=== PATIENT | female | born 1935 | race Two or more races ===

== ENCOUNTER 2021-11-07 19:56 | Inpatient (IN) | payer MEDICARE, OTHER ==
[~2021-11-07] VITALS: Ht 162.6 cm; Wt 74.8 kg
[2021-11-07] MEDS ORDERED: ZIPRASIDONE MESYLATE 20 MG/VIAL VIAL IM ONE ×2 (21:30→21:38)
--- NOTE | 2021-11-07 22:11 | NUR ---
UPDATED KEESHA (PARTNER) [phone]
--- NOTE | 2021-11-07 22:35 | NUR ---
COVID SWAB DONE AND SENT TO LAB
[2021-11-07 22:41] LABS: BASOPHILS # (AUTO) 0.1 K/uL (0.0-0.2); BASOPHILS % (AUTO) 0.7 % (0.0-2.0); EOSINOPHILS % (AUTO) 0.3 % (0.0-6.0); HEMATOCRIT 44 % (33-45); LYMPHOCYTES # (AUTO) 1.8 K/uL (0.8-4.8); LYMPHOCYTES % (AUTO) 21.9 % (20.0-44.0); MEAN CORPUSCULAR HGB CONC 34 g/dl (31.0-36.0); MEAN CORPUSCULAR VOLUME 95 fL (82-100); MONOCYTES # (AUTO) 0.8 K/uL (0.1-1.30); MONOCYTES % (AUTO) 9.3 % (2.0-12.0); NEUTROPHILS # (AUTO) 5.7 K/uL (1.8-8.9); NEUTROPHILS % (AUTO) 67.8 % (43.0-81.0); PLATELET COUNT (AUTO) 225 K/uL (150-450); RED BLOOD CELL COUNT(AUTO) 4.61 MIL/uL (4.0-5.2); WHITE BLOOD COUNT (AUTO) 8.4 K/uL (4.3-11.0)
--- NOTE | 2021-11-07 22:52 | NUR ---
URINE COLLECTED AND SENT TO LAB
[2021-11-07 22:53] LABS: CALCIUM, SERUM 9.3 mg/dL (8.5-10.1); CARBON DIOXIDE 27 mmol/L (21-32); CHLORIDE 109 mmol/L (98-107); CREATININE 0.8 mg/dL (0.6-1.3); GLUCOSE 128 mg/dL (74-106); POTASSIUM 3.9 mmol/L (3.5-5.1); SODIUM SERUM 144 mmol/L (136-145); UREA NITROGEN, BLOOD 16 mg/dL (7-18)
[2021-11-07 22:59] LABS: ALANINE AMINOTRANSFERASE 26 U/L (12-78); ALBUMIN 3.6 g/dL (3.4-5.0); ALCOHOL, BLOOD < 3 mg/dL (0-0); ALKALINE PHOSPHATASE 104 U/L (46-116); ASPARTATE AMINOTRANSFERASE 23 U/L (15-37); BILIRUBIN,DIRECT 0.1 mg/dL (0.0-0.2); BILIRUBIN,TOTAL 0.4 mg/dL (0.2-1.0)
[2021-11-07 23:02] LABS: ACETAMINOPHEN 0 ug/ml (10-30)
[2021-11-07 23:08] LABS: BILIRUBIN,URINE NEGATIVE (NEGATIVE); COLOR,URINE YELLOW (YELLOW); LEUKOCYTE ESTERASE ,URINE NEGATIVE (NEGATIVE); NITRITE, URINE NEGATIVE (NEGATIVE); PH,URINE 6.5 (5.0-8.0); PROTEIN,URINE NEGATIVE (NEGATIVE); UGLUCOSE NEGATIVE (NEGATIVE); UROBILINOGEN,URINE 0.2 EU/dL (0.2)
[2021-11-07] MEDS ORDERED: ESCI10TA PO (23:39)
[2021-11-07] MEDS ORDERED: METH5TAB6 PO (23:39)
[2021-11-07] MEDS ORDERED: CHOL400T11 PO (23:39)
[2021-11-07] MEDS ORDERED: ASCO500C18 PO (23:39)
[2021-11-07] MEDS ORDERED: ALIS150T PO (23:39)
--- NOTE | 2021-11-07 23:59 | NUR ---
CALLED JESSICA JACKSON FOR PSYCH EVAL
--- NOTE | 2021-11-08 01:44 | NUR ---
[facility] AT BED SIDE
--- NOTE | 2021-11-08 02:04 | NUR ---
REPROT GIVEN TO SERENITY ALEMAN
--- NOTE | 2021-11-08 02:10 | NUR ---
PATIENT BEING TRANSFERRED TO 220
[2021-11-08] MEDS ORDERED: BLOOD SUGAR DIAGNOSTIC 1 EACH STRIP IN ONE (02:30)
[2021-11-08] MEDS ORDERED: ACETAMINOPHEN 325 MG TABLET PO PRN (02:30)
[2021-11-08] MEDS ORDERED: LORAZEPAM 0.5 MG TABLET PO PRN (02:30)
[2021-11-08] MEDS ORDERED: MAGNESIUM HYDROXIDE 30 ML UDC PO PRN (02:30)
[2021-11-08] MEDS ORDERED: MAG HYDROX/AL HYDROX/SIMETH 30 ML UDC PO PRN (02:30)
[2021-11-08] MEDS ORDERED: TEMAZEPAM 7.5 MG CAPSULE PO PRN (02:30)
[2021-11-08 02:45] VITALS: BP 141/95
--- NOTE | 2021-11-08 03:30 | NUR ---
GPS PILLAR WORKER NOTES: ADMITTED 86 YRS OLD FEMALE TO GPS UNIT FROM [facility] ER, ORIGINALLY FROM [facility]. UPON FACE TO FACE EVALUATION, PATIENT WAS DISORIENTED AND AGITATED. SHE WAS UNABLE TO RESPOND TO QUESTIONS ASKED. SHE KEPT REPEATING SPECIFIC INFO AND HAVING TANGENTIAL PATTERN OF RESPONSE AND THINKING. PATIENT'S NURSE DELFINA AT [facility] REPORTS THAT PATIENT WAS STRIKING OUT AT STAFF, NOT COMPLYING WITH DIRECTIVES, ATTEMPTING TO LEAVE FACILITY AND DIFFICULT TO REDIRECT. PATIENT HAS HX OF ALZHEIMER'S AND MAJOR DEPRESSIVE DISORDER. UPON FACE TO FACE ASSESSMENT, PATIENT IS A & O X 1, CONFUSED, DISORGANIZED, DISORIENTED, HARD OF HEARING BILATERALLY, EASILY IRRITABLE/AGITATED, ANXIOUS/RESTLESS BUT REDIRECTABLE AT THIS TIME. AMBULATORY, STEADY GAIT. PATIENT NEEDS FREQUENT REDIRECTIONS DUE TO CONFUSION. PATIENT HAS NO S/S OF DISTRESS. RESPIRATION EVEN AND UNLABORED WITH EQUAL RISE AND FALL OF THE CHEST, ON ROOM AIR. PATIENT BS113 MG/DL, MRSA COLLECTED IN ER, PATIENT REFUSED TO SIGN ALL ADMISSION PAPERWORK AND REFUSED TO ANSWER QUESTIONS, PATIENT IS A POOR HISTORIAN. SKIN ASSESSMENT DONE. PATIENT BELONGINGS WERE INVENTORIED AND CONTRABAND REMOVED AND PLACED IN CONTRABAND LOCKER. PATIENT IS UNDER THE PSYCHIATRIC CARE OF DR. MONZON AND MEDICAL CARE OF DR KAPOOR. PATIENT BED IS IN LOW LOCKED POSITION, CALL CASTRO WITHIN REACH. BED ALARM IS ON. PATIENT REFUSED SNACK AT THIS TIME, ONLY WANTED TO HAVE CUP OF WATER. ALL PATIENT CARE NEEDS HAVE BEEN MET AT THIS TIME. PATIENT IS SLEEPING AT THIS TIME. WILL CONTINUE TO MONITOR Q15 MINS FOR MOOD, SAFETY AND BEHAVIOR.
--- NOTE | 2021-11-08 05:30 | NUR ---
GPS RN NOTE: PATIENT IS SLEEPING COMFORTABLY AT THIS TIME.
--- NOTE | 2021-11-08 07:07 | NUR ---
GPS RN NOTE: FAMILY NOTIFIED CALLED GISEL PARR AT [phone] AND NOTIFIED ABOUT PATIENT'S ADMISSION AT GPS UNIT. BENNETT WOULD LIKE TO DISCUSS PLAN OF CARE WITH DR. MONZON. ENDORSED TO AM RN AND LEFT A MESSAGE FOR DR. MONZON ON THE COMMUNICATION BOARD. Addendum: 11/08/21 at 0723 by ASH GATYAN RN per bennett(/partner), patient is hard of hearing bilaterally and has hearing aids but patient's hearing aids are at [facility] (per bennett).
[2021-11-08 08:00] VITALS: BP 125/53
[2021-11-08] MEDS: METHIMAZOLE (5MG) 5 MG TABLET PO SCH ×2 (09:30→10:28)
[2021-11-08] MEDS ORDERED: ALISKIREN HEMIFUMARATE 150 MG TABLET PO SCH (09:30)
[2021-11-08] MEDS: ASCORBIC ACID 500 MG TABLET PO SCH ×2 (09:30→10:28)
[2021-11-08] MEDS: CHOLECALCIFEROL (VITAMIN D 3) 400 UNIT TABLET PO SCH (09:30)
--- NOTE | 2021-11-08 10:48 | NUR ---
FLOYD FROM THE LAB INFORMED RN THAT PT REFUSED BLOOD DRAW. WILL ATTEMPT LATER.
--- NOTE | 2021-11-08 10:52 | NUR ---
LEE ANN Initial Discharge Plan: Patient currently resides at [facility] located at [address] [place] [address]; ([phone]). LEE ANN contacted Radha horn ([phone]) who stated pt is welcomed back but would want this SW to send referral to [facility] due to pt requiring a locked unit. However, she stated if [facility] unable to take pt then they will take pt. LEE ANN spoke with patient's partner Kya ([phone]) to gather collateral. LEE ANN will work with the MD and treatment team to coordinate appropriate discharge.
--- NOTE | 2021-11-08 10:52 | NUR ---
SW Admit Source: Patient was placed on a 5150 hold for danger to others and GD. [facility] located at [address] [place] [address]; ([phone]). SW contacted Radha horn ([phone]) who stated pt is welcomed back but would want this SW to send referral to [facility] due to pt requiring a locked unit. However, she stated if [facility] unable to take pt then they will take pt.
--- NOTE | 2021-11-08 10:54 | NUR ---
LEE ANN Family Contact: LEE ANN contacted patient's partner Kya ([phone]) to gather collateral. LEE ANN discussed treatment and discharge planning. She reported that she is the DPOA and will bring the documents.
--- NOTE | 2021-11-08 10:58 | NUR ---
Treatment Plan: Pt is very confused and unable to sign treatment plan.
--- NOTE | 2021-11-08 11:33 | NUR ---
SNF Contact: SW contacted Saida admin from [facility] ([phone]) and stated that [facility] Shrest[facility] wants to refer pt. They stated to send referral packet. SW will send referral packet when psychiatrist uploads documents.
--- NOTE | 2021-11-08 11:43 | NUR ---
ROCIO TODD INFORMED THAT [facility] DOES NOT CARRY TEKTURNA. ROCIO TODD STATED THAT SHE WILL REVIEW OPTIONS.
[2021-11-08 20:00] VITALS: BP 152/90
[2021-11-08] MEDS: DIVALPROEX SODIUM 250 MG TABLET.DR PO SCH (21:00)
[2021-11-08] MEDS: risperiDONE 1 MG TABLET PO SCH (21:00)
[2021-11-08] MEDS: LORAZEPAM 0.5 MG TABLET PO PRN (21:36)
--- NOTE | 2021-11-08 21:38 | NUR ---
GPS RN NOTE: ANXIETY PATIENT NOTED TO BE ANXIOUS, RESTLESS, AGITATED, PACING IN THE HALLWAY, ROOM TO ROOM, NON REDIRECTABLE AT THIS TIME. PRN ATIVAN 0.5 MG 1 TAB PO ADMINISTERED. WILL CONTINUE TO MONITOR FOR ANY CHANGE OF CONDITION.
[2021-11-08] MEDS: RIVASTIGMINE TARTRATE 1.5 MG CAPSULE PO SCH (21:50)
--- NOTE | 2021-11-08 21:55 | NUR ---
GPS RN NOTE: SEEN BY DR. MONZON PATIENT SEEN BY DR. NA PALMA WITH NEW ORDERS TO START RISPERDAL AND DEPAKOTE ORDERED. NOTIFIED DR. MONZON THAT CONSENT FORM IS NEEDED FOR THESE BOTH MEDICATIONS. PER DR. MONZON HE WILL SEND THE CONSENT FORM TO GPS UNIT. WAITING FOR CONSENT FORM AT THIS TIME.
--- NOTE | 2021-11-08 22:00 | NUR ---
GPS RN NOTE DR. MONZON SPOKE TO PATIENT'S /PARTNER KESHAV AND OBTAINED INFORMATION/HISTORY REGARDING THE PATIENT.
--- NOTE | 2021-11-09 00:55 | NUR ---
GPS RN NOTE DR. MONZON SENT CONSENT FORM FOR DEPAKOTE AND RISPERDAL, FAXED TO [facility] & MEDS WERE VERIFIED. PATIENT IS SLEEPING COMFORTABLY AT THIS TIME, REFUSED TO TAKE MEDICATION AND WANTED TO SLEEP AT THIS TIME.
[2021-11-09 08:00] VITALS: BP 144/71
[2021-11-09] MEDS: ASCORBIC ACID 500 MG TABLET PO SCH (09:00)
[2021-11-09] MEDS: risperiDONE 1 MG TABLET PO SCH ×2 (09:00→21:00)
[2021-11-09] MEDS: DIVALPROEX SODIUM 250 MG TABLET.DR PO SCH ×2 (09:00→21:00)
[2021-11-09] MEDS: RIVASTIGMINE TARTRATE 1.5 MG CAPSULE PO SCH ×2 (09:00→16:47)
[2021-11-09] MEDS: CHOLECALCIFEROL (VITAMIN D 3) 400 UNIT TABLET PO SCH (09:00)
[2021-11-09] MEDS: METHIMAZOLE (5MG) 5 MG TABLET PO SCH (09:30)
--- NOTE | 2021-11-09 09:42 | NUR ---
RN-NOTES PATIENT REFUSED ALL 0900AM MEDICATIONS DESPITE EXPLANATIONS RISK AND BENEFITS. OFFERED X3 BUT PATIENT GETS IRRITABLE AND ANGRY.STATED" WHY ,NO MEDICATIONS".
--- NOTE | 2021-11-09 11:15 | NUR ---
DPOA AND ADVANCE DIRECTIVE DOCUMENTS: Patient's partner Kya ([phone]) is the DPOA documents of finances and for Health decision. [employer] Directive given. Placed in the chart.
--- NOTE | 2021-11-09 11:30 | NUR ---
RN-NOTES PATIENT'S DPOA (SUZANNA) BROUGHT PATIENT BILATERAL HEARING AID WITH AIRPLANE ELECTRICIAN. AIRPLANE ELECTRICIAN WAS KEPT IN THE NURSE STATION AND THE HEARING AID IS WITH PATIENT. WILL ENDORSE TO THE NEXT SHIFT.
--- NOTE | 2021-11-09 11:47 | NUR ---
SNF Referral: LEE ANN sent referral to [facility] atten to Saida (F:[phone]) for placement option. SW sent H & P, progress notes, and medication list.
[2021-11-09 12:46] LABS: CHOLESTEROL 223 mg/dL (<200); HDL CHOLESTEROL 60 mg/dL (40-60); LDL 146 mg/dL (0-99); TRIGLYCERIDES 133 mg/dL (30-150)
[2021-11-09 13:54] LABS: ALBUMIN 3.3 g/dL (3.4-5.0); BILIRUBIN,TOTAL 0.8 mg/dL (0.2-1.0); CALCIUM, SERUM 9.3 mg/dL (8.5-10.1); CREATININE 0.8 mg/dL (0.6-1.3); TOTAL PROTEIN, SERUM 6.6 g/dL (6.4-8.2)
[2021-11-09 16:00] VITALS: BP 159/94
--- NOTE | 2021-11-09 18:34 | NUR ---
RN-NOTES PATIENT BILATERAL HEARING AID WITH PATIENT AT THIS TIME. WILL ENDORSE TO INCOMING NURSE FOR CONTINUITY OF CARE.
[2021-11-09 20:02] VITALS: BP 158/87
--- NOTE | 2021-11-09 22:19 | NUR ---
GPS RN NOTE: MEDICATION REFUSAL PATIENT REFUSED ALL 2100 MEDICATIONS DESPITE OF RISK AND BENEFITS EXPLANATIONS. OFFERED X 3 BUT PATIENT GETS AGITATED, ANXIOUS AND CONTINUED TO REFUSE NIGHT MEDICATION. DR MONZON WAS MADE AWARE.
[2021-11-09 22:50] VITALS: BP 142/84
--- NOTE | 2021-11-09 22:53 | NUR ---
GPS RN NOTE: PATIENT'S BOTH HEARING AIDS ARE CHARGING AT NURSES STATION IN THE ELECTRONICS HARDWARE DESIGN ENGINEER. PATIENT IS SLEEPING AT THIS TIME. WILL ENDORSE TO AM RN.
--- NOTE | 2021-11-10 07:06 | NUR ---
GPS RN NOTE: PATIENT'S BOTH HEARING AIDS ARE STILL CHARGING AT NURSES STATION IN THE HAND RIVETER. PATIENT IS SLEEPING AT THIS TIME. WILL ENDORSE TO AM RN.
--- NOTE | 2021-11-10 07:47 | NUR ---
RN-NOTES RECEIVED T.O ORDER FROM DR. MONZON TO CHANGE DEPAKOTE Dr 250MG TO DEPAKOTE SPRINKLE 250MG P.O Q12HR. NOTED AND CARRIED OUT.
[2021-11-10 08:00] VITALS: BP 156/89
[2021-11-10] MEDS: RIVASTIGMINE TARTRATE 1.5 MG CAPSULE PO SCH ×2 (08:03→16:20)
[2021-11-10] MEDS: ASCORBIC ACID 500 MG TABLET PO SCH (08:03)
[2021-11-10] MEDS: risperiDONE 1 MG TABLET PO SCH ×2 (08:03→21:00)
[2021-11-10] MEDS: DIVALPROEX SODIUM 125 MG CAP.SPRINK PO SCH ×3 (09:00→21:00)
[2021-11-10] MEDS: CHOLECALCIFEROL 1,000 UNIT TABLET (VIT D3) PO SCH ×2 (09:00→09:44)
[2021-11-10] MEDS: METHIMAZOLE (5MG) 5 MG TABLET PO SCH (09:34)
--- NOTE | 2021-11-10 10:00 | NUR ---
RN-NOTES PATIENT WAS SELECTIVE WITH MEDICATIONS,REFUSED DEPAKOTE 250MG P.O AND VIT. D3 P.O. OFFERED X3
[2021-11-10 16:00] VITALS: BP 140/57
[2021-11-10 20:02] VITALS: BP 136/82
--- NOTE | 2021-11-10 21:07 | NUR ---
GPS RN NOTE: MEDICATION REFUSAL PATIENT REFUSED ALL 2100 MEDICATIONS DESPITE OF RISK AND BENEFITS EXPLANATIONS. OFFERED X 3 BUT PATIENT GETS AGITATED, ANXIOUS AND CONTINUED TO REFUSE NIGHT MEDICATION. PT. SEEN BY DR. MONZON AND DR THAKKAR WAS MADE AWARE. OF PT. IS REFUSING MEDS.
[2021-11-11 08:00] VITALS: BP 110/63
[2021-11-11] MEDS: DIVALPROEX SODIUM 125 MG CAP.SPRINK PO SCH ×2 (08:43→21:32)
[2021-11-11] MEDS: RIVASTIGMINE TARTRATE 1.5 MG CAPSULE PO SCH ×2 (08:43→17:00)
[2021-11-11] MEDS: risperiDONE 1 MG TABLET PO SCH ×2 (08:43→21:52)
[2021-11-11] MEDS: CHOLECALCIFEROL 1,000 UNIT TABLET (VIT D3) PO SCH (08:44)
[2021-11-11] MEDS: METHIMAZOLE (5MG) 5 MG TABLET PO SCH (08:44)
[2021-11-11] MEDS: ASCORBIC ACID 500 MG TABLET PO SCH (08:44)
[2021-11-11 16:00] VITALS: BP 133/69
--- NOTE | 2021-11-11 17:55 | NUR ---
GPS/RN PT REFUSED PO MEDS TODAY OFFERED X3. DR MONZON AWARE.
[2021-11-11] MEDS: TEMAZEPAM 7.5 MG CAPSULE PO PRN (23:18)
[2021-11-12] MEDS: CHOLECALCIFEROL 1,000 UNIT TABLET (VIT D3) PO SCH (09:00)
[2021-11-12] MEDS: DIVALPROEX SODIUM 125 MG CAP.SPRINK PO SCH ×2 (09:34→21:47)
[2021-11-12] MEDS: ASCORBIC ACID 500 MG TABLET PO SCH (09:34)
[2021-11-12] MEDS: risperiDONE 1 MG TABLET PO SCH ×2 (09:35→21:48)
[2021-11-12] MEDS: RIVASTIGMINE TARTRATE 1.5 MG CAPSULE PO SCH ×2 (09:35→17:36)
--- NOTE | 2021-11-12 14:01 | NUR ---
patient complain of anxiety medicated with Ativan 1mg will continue to monitor . Addendum: 11/12/21 at 1751 by NICK DC given at 1958
[2021-11-12] MEDS: LORAZEPAM 0.5 MG TABLET PO PRN (14:20)
[2021-11-13 08:00] VITALS: BP 153/71
[2021-11-13] MEDS: CHOLECALCIFEROL 1,000 UNIT TABLET (VIT D3) PO SCH ×2 (10:32→10:45)
[2021-11-13] MEDS: DIVALPROEX SODIUM 125 MG CAP.SPRINK PO SCH ×3 (10:33→20:35)
[2021-11-13] MEDS: risperiDONE 1 MG TABLET PO SCH ×3 (10:33→20:35)
[2021-11-13] MEDS: RIVASTIGMINE TARTRATE 1.5 MG CAPSULE PO SCH ×3 (10:34→16:25)
[2021-11-13] MEDS: ASCORBIC ACID 500 MG TABLET PO SCH ×2 (10:34→10:45)
--- NOTE | 2021-11-13 10:48 | NUR ---
RNRadhaCO: PT REFUSED LAB WORK.
--- NOTE | 2021-11-13 11:10 | NUR ---
RN-CO: PT REFUSED LAB WORKS, ENCOURAGED SEVERAL TIMES BUT STILL REFUSED,
[2021-11-13 16:00] VITALS: BP 144/72
[2021-11-13 20:11] VITALS: BP 151/70
--- NOTE | 2021-11-13 20:47 | NUR ---
GPS RN NOTES: RISPERDAL 0.5MG PARTIAL DOSE WASTED. PATIENT TOOK PM MEDS WITH ICE CREAM AFTER SEVERAL ENCOURAGEMENT.
[2021-11-13 21:09] LABS: BASOPHILS % (AUTO) 0.5 % (0.0-2.0); HEMATOCRIT 42 % (33-45); LYMPHOCYTES # (AUTO) 1.8 K/uL (0.8-4.8); LYMPHOCYTES % (AUTO) 21.5 % (20.0-44.0); MEAN CORPUSCULAR HGB CONC 34 g/dl (31.0-36.0); MEAN CORPUSCULAR VOLUME 97 fL (82-100); MONOCYTES # (AUTO) 0.9 K/uL (0.1-1.30); NEUTROPHILS # (AUTO) 5.4 K/uL (1.8-8.9); PLATELET COUNT (AUTO) 226 K/uL (150-450); RED BLOOD CELL COUNT(AUTO) 4.31 MIL/uL (4.0-5.2); WHITE BLOOD COUNT (AUTO) 8.2 K/uL (4.3-11.0)
[2021-11-13 21:19] LABS: VALPROIC ACID 29 ug/mL (50-100)
[2021-11-13 21:32] LABS: ALANINE AMINOTRANSFERASE 27 U/L (12-78); ALBUMIN 3.1 g/dL (3.4-5.0); ALKALINE PHOSPHATASE 104 U/L (46-116); ASPARTATE AMINOTRANSFERASE 23 U/L (15-37); BILIRUBIN,TOTAL 0.6 mg/dL (0.2-1.0); CALCIUM, SERUM 8.7 mg/dL (8.5-10.1); CARBON DIOXIDE 31 mmol/L (21-32); CHLORIDE 106 mmol/L (98-107); CREATININE 0.8 mg/dL (0.6-1.3); GLUCOSE 114 mg/dL (74-106); MAGNESIUM 2.2 mg/dL (1.8-2.4); SODIUM SERUM 144 mmol/L (136-145); TOTAL PROTEIN, SERUM 6.7 g/dL (6.4-8.2); UREA NITROGEN, BLOOD 18 mg/dL (7-18)
[2021-11-14 08:00] VITALS: BP 114/62
[2021-11-14] MEDS: risperiDONE 1 MG TABLET PO SCH ×2 (09:00→21:28)
[2021-11-14] MEDS: RIVASTIGMINE TARTRATE 1.5 MG CAPSULE PO SCH ×2 (09:00→16:35)
[2021-11-14] MEDS: DIVALPROEX SODIUM 125 MG CAP.SPRINK PO SCH ×2 (09:00→21:28)
[2021-11-14] MEDS: CHOLECALCIFEROL 1,000 UNIT TABLET (VIT D3) PO SCH (09:00)
[2021-11-14] MEDS: ASCORBIC ACID 500 MG TABLET PO SCH (09:00)
[2021-11-14] MEDS: METHIMAZOLE (5MG) 5 MG TABLET PO SCH (09:17)
--- NOTE | 2021-11-14 11:34 | NUR ---
SNF Contact: SW contacted Saida ([phone]) from [facility] ([phone]) stated they do not have beds available at this time.
--- NOTE | 2021-11-14 11:37 | NUR ---
SNF Contact: SW contacted Radha horn ([phone]) who stated pt is welcomed back upon dc and has attempted to send packet to [facility] and they denied pt.
[2021-11-14 16:00] VITALS: BP 117/61
--- NOTE | 2021-11-14 19:50 | NUR ---
GPS RN NOTE: REFUSED VITALS PATIENT REFUSED ROUTINE VITALS AT THIS TIME, GETS RESTLESS, IRRITABLE, ANXIOUS AND AGITATED TOWARDS STAFF WHEN REDIRECTED. DESPITE OF RISKS AND BENEFITS EXPLANATIONS, PATIENT CONTINUED TO REFUSE VITALS THIS SHIFT.
[2021-11-14] MEDS: LORAZEPAM 0.5 MG TABLET PO PRN (20:00)
--- NOTE | 2021-11-14 20:03 | NUR ---
GPS RN NOTE: ANXIETY/AGITATION PATIENT IS RESTLESSNESS, ANXIOUS, PACING ROOM TO ROOM, AGITATED/AGGRESSIVE WHEN REDIRECTED. PRN ATIVAN 0.5 MG PO ADMINISTERED ORDERED. PATIENT HAD SNACK, TOLERATED WELL. WILL CONTINUE TO MONITOR FOR ANY CHANGES.
--- NOTE | 2021-11-14 22:00 | NUR ---
GPS RN NOTE PATIENT SEEN BY DR. MONZON, INFORMED DR. MONZON THAT PATIENT IS EXTREMELY CONFUSED, UNABLE TO FOLLOW DIRECTIONS, TAKES MEDS MIXED IN PUDDING ONLY OTHERWISE UNABLE TO FOLLOW DIRECTIONS DURING MEDICATIONS ADMINISTRATION. PER DR. MONZON, ENDORSE TO STAFF/AM SHIFT TO GIVE MEDICINE WITH FOOD/PUDDING TO THE PATIENT. PATIENT WAS CALM AND RELAXED AT THIS TIME, WATCHING TV IN THE DINNING ROOM. WILL ENDORSE TO AM SHIFT AND WILL CONTINUE TO MONITOR THE PATIENT FOR ANY CHANGES.
--- NOTE | 2021-11-14 22:15 | NUR ---
GPS RN NOTE PATIENT'S BOTH HEARING AIDS ARE CHARGING AT NURSES STATION IN PATIENT'S PUBLIC HEALTH STAFF NURSE. WILL ENDORSE TO AM RN.
--- NOTE | 2021-11-14 23:28 | NUR ---
GPS RN NOTE PER STOCK FITTER NADEEM, PATIENT'S LABS CBC, CMP, MG, VALPORIC ACID ORDERS ARE BEING CANCELLED AT THIS TIME. REORDERED ALL THESE LABS AND WILL ENCOURAGE PATIENT FOR BLOOD DRAW IN AM SINCE PATIENT IS UNCOOPERATIVE AND REFUSES BLOOD DRAW.
--- NOTE | 2021-11-14 23:30 | NUR ---
PATIENT IS SLEEPING COMFORTABLY AT THIS TIME.
[2021-11-15 08:00] VITALS: BP 157/77
[2021-11-15] MEDS: DIVALPROEX SODIUM 125 MG CAP.SPRINK PO SCH ×2 (09:00→21:08)
[2021-11-15] MEDS: CHOLECALCIFEROL 1,000 UNIT TABLET (VIT D3) PO SCH (09:00)
[2021-11-15] MEDS: risperiDONE 1 MG TABLET PO SCH ×2 (09:00→21:08)
[2021-11-15] MEDS: ASCORBIC ACID 500 MG TABLET PO SCH (09:00)
[2021-11-15] MEDS: RIVASTIGMINE TARTRATE 1.5 MG CAPSULE PO SCH ×2 (09:00→16:47)
[2021-11-15] MEDS: METHIMAZOLE (5MG) 5 MG TABLET PO SCH (09:07)
--- NOTE | 2021-11-15 09:07 | NUR ---
PT REFUSED AM MEDS. CHARGE NURSE AWARE.WILL INFORM LAUREANO PERTINENTLY.
--- NOTE | 2021-11-15 09:09 | NUR ---
PER TIO, PRESCHOOL DISABILITY TEACHER, PT REFUSED AM BLOOD DRAW. WILL INFORM MD. WILL CONTINUE TO MONITOR.
[2021-11-15] MEDS: LISINOPRIL (10MG) 10 MG TABLET PO SCH (12:52)
--- NOTE | 2021-11-15 13:17 | NUR ---
Court Hearing: Patient's court hearing for 5810 was today and it was upheld for GD.
--- NOTE | 2021-11-15 15:04 | NUR ---
PT REFUSED LABS FOR THE SECOND TIME. EDMETRIUS METAPHYSICS TEACHER.
[2021-11-15 16:00] VITALS: BP 128/77
--- NOTE | 2021-11-15 18:50 | NUR ---
DR MONZON AND ARTHUR AWARE OF PT'S REFUSAL OF MEDICATIONS. DR MONZON CHANGE PSYCH MED SCHEDULE.
--- NOTE | 2021-11-15 20:00 | NUR ---
RN NOTES: REFUSED SKIN ASSESSMENT PT. REFUSED SKIN ASSESSMENT AND PICTURES TAKEN AND PT. VISUALLY NOTED SELF INFLICTED MULTIPLE SKIN DISCOLORATIONS.WILL CONTINUE WITH CARE .
[2021-11-15 21:07] LABS: BASOPHILS % (AUTO) 0.4 % (0.0-2.0); EOSINOPHILS % (AUTO) 1.2 % (0.0-6.0); HEMATOCRIT 43 % (33-45); HEMOGLOBIN 14.9 g/dL (11.5-14.8); LYMPHOCYTES # (AUTO) 1.3 K/uL (0.8-4.8); LYMPHOCYTES % (AUTO) 17.8 % (20.0-44.0); MEAN CORPUSCULAR HGB CONC 34 g/dl (31.0-36.0); MEAN CORPUSCULAR VOLUME 95 fL (82-100); MONOCYTES # (AUTO) 0.8 K/uL (0.1-1.30); MONOCYTES % (AUTO) 11.1 % (2.0-12.0); NEUTROPHILS % (AUTO) 69.5 % (43.0-81.0); PLATELET COUNT (AUTO) 215 K/uL (150-450); RED BLOOD CELL COUNT(AUTO) 4.57 MIL/uL (4.0-5.2); WHITE BLOOD COUNT (AUTO) 7.2 K/uL (4.3-11.0)
[2021-11-15 21:20] LABS: ALBUMIN 3.3 g/dL (3.4-5.0); BILIRUBIN,TOTAL 0.5 mg/dL (0.2-1.0); CALCIUM, SERUM 8.7 mg/dL (8.5-10.1); MAGNESIUM 2.2 mg/dL (1.8-2.4); POTASSIUM 4.1 mmol/L (3.5-5.1)
[2021-11-15 22:00] VITALS: BP 132/78
[2021-11-16 08:00] VITALS: BP 143/72
[2021-11-16] MEDS: CHOLECALCIFEROL 1,000 UNIT TABLET (VIT D3) PO SCH (09:23)
[2021-11-16] MEDS: LISINOPRIL (10MG) 10 MG TABLET PO SCH (09:24)
[2021-11-16] MEDS: ASCORBIC ACID 500 MG TABLET PO SCH (09:24)
[2021-11-16] MEDS: METHIMAZOLE (5MG) 5 MG TABLET PO SCH (10:27)
[2021-11-16] MEDS: risperiDONE 1 MG TABLET PO SCH ×2 (13:48→21:06)
[2021-11-16] MEDS: RIVASTIGMINE TARTRATE 1.5 MG CAPSULE PO SCH ×2 (13:49→21:05)
[2021-11-16] MEDS: DIVALPROEX SODIUM 125 MG CAP.SPRINK PO SCH ×2 (13:49→21:05)
[2021-11-16 16:00] VITALS: BP 132/69
[2021-11-16] MEDS: LORAZEPAM 0.5 MG TABLET PO PRN (19:52)
--- NOTE | 2021-11-16 19:55 | NUR ---
RN NOTES: ANXIETY PATIENT C/O RESTLESSNESS AND ANXIETY,PARANOID.PACING IN HALLWAY ,WANDERS AROUND THE UNIT , PRN ATIVAN 0.5 MG PO ADMINISTERED . WILL CONTINUE TO MONITOR .
[2021-11-16 20:00] VITALS: BP 132/83
--- NOTE | 2021-11-17 05:40 | NUR ---
RN NOTES: REFUSED SKIN ASSESSMENT PT. REFUSED SKIN ASSESSMENT AND PICTURES TAKEN AND PT.BEHAVIOR UNCOOPERTIVE ,PARANOID.WILL CONTINUE WITH CARE .
[2021-11-17 08:00] VITALS: BP 125/76
[2021-11-17] MEDS: CHOLECALCIFEROL 1,000 UNIT TABLET (VIT D3) PO SCH (09:19)
[2021-11-17] MEDS: ASCORBIC ACID 500 MG TABLET PO SCH (09:19)
[2021-11-17] MEDS: METHIMAZOLE (5MG) 5 MG TABLET PO SCH (09:19)
[2021-11-17] MEDS: LISINOPRIL (10MG) 10 MG TABLET PO SCH (09:19)
[2021-11-17] MEDS: DIVALPROEX SODIUM 125 MG CAP.SPRINK PO SCH ×2 (13:24→21:09)
[2021-11-17] MEDS: RIVASTIGMINE TARTRATE 1.5 MG CAPSULE PO SCH ×2 (13:24→21:09)
[2021-11-17] MEDS: risperiDONE 1 MG TABLET PO SCH ×2 (13:24→21:09)
[2021-11-17 16:00] VITALS: BP 129/61
[2021-11-17 20:00] VITALS: BP 136/81
[2021-11-17] MEDS: TEMAZEPAM 7.5 MG CAPSULE PO PRN (21:47)
--- NOTE | 2021-11-17 21:47 | NUR ---
GPS RN NOTES: INSOMNIA PATIENT IS UNABLE TO SLEEP. ADMINISTERED RESTORIL 7.5MG PO. WILL CONTINUE TO MONITOR.
[2021-11-18] MEDS: LORAZEPAM 0.5 MG TABLET PO PRN ×2 (00:31→19:58)
--- NOTE | 2021-11-18 00:31 | NUR ---
GPS RN NOTES PATIENT IS ANXIOUS AND RESTLESS. ADMINISTERED ATIVAN 05.MG 1 TAB PO. WILL CONTINUE TO MONITOR FOR PATIENT'S SAFETY.
[2021-11-18 08:00] VITALS: BP 132/78
[2021-11-18] MEDS: METHIMAZOLE (5MG) 5 MG TABLET PO SCH (09:40)
[2021-11-18] MEDS: ASCORBIC ACID 500 MG TABLET PO SCH (09:40)
[2021-11-18] MEDS: CHOLECALCIFEROL 1,000 UNIT TABLET (VIT D3) PO SCH (09:40)
[2021-11-18] MEDS: LISINOPRIL (10MG) 10 MG TABLET PO SCH (09:40)
[2021-11-18] MEDS: RIVASTIGMINE TARTRATE 1.5 MG CAPSULE PO SCH ×2 (12:32→21:15)
[2021-11-18] MEDS: risperiDONE 1 MG TABLET PO SCH ×2 (12:33→21:15)
[2021-11-18] MEDS: DIVALPROEX SODIUM 125 MG CAP.SPRINK PO SCH ×2 (12:33→22:11)
--- NOTE | 2021-11-18 13:45 | NUR ---
RN-NOTES BILLET GRINDER HELPING THE PATIENT WITH HER LUNCH TRAY IN THE ROOM BUT PATIENT THROW HER TRAY AND STATED" DON'T GIVE ME ANYTHING,YOU SEE WHAT YOU DID". PATIENT IS CONFUSED, REDIRECTED AND REORIENTED PATIENT. BILLET GRINDER DID ORDERED ANOTHER LUNCH TRAY AND PATIENT DID ATE.
[2021-11-18] MEDS ORDERED: DIVALPROEX SODIUM 125 MG CAP.SPRINK PO SCH ×3 (15:00→21:00)
[2021-11-18 16:00] VITALS: BP 119/69
[2021-11-18] MEDS ORDERED: risperiDONE 1 MG TABLET PO SCH ×2 (17:00)
[2021-11-18 19:42] VITALS: BP 134/67
[2021-11-18 19:55] VITALS: BP 134/67
--- NOTE | 2021-11-18 19:59 | NUR ---
GPS RN NOTE: ANXIETY PATIENT IS RESTLESS, ANXIOUS, AGITATED/AGGRESSIVE WHEN REDIRECTED. PRN ATIVAN 0.5 MG PO ADMINISTERED ORDERED. PATIENT HAD SNACK, TOLERATED WELL. WILL CONTINUE TO MONITOR FOR ANY CHANGES.
--- NOTE | 2021-11-18 23:00 | NUR ---
GPS RN NOTE PATIENT TOOK ALL HER SCHEDULED MEDICATIONS WITH VANILLA PUDDING, USED THE RESTROOM AND SLEEPING AT THIS TIME.
[2021-11-19 08:00] VITALS: BP 131/76
[2021-11-19] MEDS: LISINOPRIL (10MG) 10 MG TABLET PO SCH (10:03)
[2021-11-19] MEDS: CHOLECALCIFEROL 1,000 UNIT TABLET (VIT D3) PO SCH (10:04)
[2021-11-19] MEDS: ASCORBIC ACID 500 MG TABLET PO SCH (10:04)
[2021-11-19] MEDS: DIVALPROEX SODIUM 125 MG CAP.SPRINK PO SCH ×2 (12:54→21:46)
[2021-11-19] MEDS: RIVASTIGMINE TARTRATE 1.5 MG CAPSULE PO SCH ×2 (12:54→21:21)
[2021-11-19] MEDS: risperiDONE 1 MG TABLET PO SCH ×2 (12:54→21:21)
[2021-11-19 16:00] VITALS: BP 107/50
[2021-11-19 19:55] VITALS: BP 113/56
[2021-11-19] MEDS: LORAZEPAM 0.5 MG TABLET PO PRN (23:06)
[2021-11-20 08:00] VITALS: BP 110/69
[2021-11-20] MEDS: ASCORBIC ACID 500 MG TABLET PO SCH (09:00)
[2021-11-20] MEDS: CHOLECALCIFEROL 1,000 UNIT TABLET (VIT D3) PO SCH (09:00)
[2021-11-20] MEDS: LISINOPRIL (10MG) 10 MG TABLET PO SCH (09:00)
[2021-11-20] MEDS: risperiDONE 1 MG TABLET PO SCH ×2 (13:27→21:34)
[2021-11-20] MEDS: RIVASTIGMINE TARTRATE 1.5 MG CAPSULE PO SCH ×2 (13:27→21:33)
[2021-11-20] MEDS: DIVALPROEX SODIUM 125 MG CAP.SPRINK PO SCH ×2 (13:28→21:44)
[2021-11-20 16:00] VITALS: BP 143/85
[2021-11-20 20:02] VITALS: BP 126/75
[2021-11-20] MEDS: TEMAZEPAM 7.5 MG CAPSULE PO PRN (21:45)
--- NOTE | 2021-11-20 21:47 | NUR ---
Pt unable to sleep. Agitated and roaming around. Restoril 7.5 mg po prn given as ordered. Will continue to monitor.
--- NOTE | 2021-11-20 23:13 | NUR ---
Post 1 hr Restoril effective. Pt asleep. Will continue to monitor. Frequent visual check done for safety.
[2021-11-21 08:00] VITALS: BP 118/51
[2021-11-21] MEDS: ASCORBIC ACID 500 MG TABLET PO SCH (08:57)
[2021-11-21] MEDS: METHIMAZOLE (5MG) 5 MG TABLET PO SCH (08:57)
[2021-11-21] MEDS: CHOLECALCIFEROL 1,000 UNIT TABLET (VIT D3) PO SCH (08:57)
[2021-11-21] MEDS: LISINOPRIL (10MG) 10 MG TABLET PO SCH (08:57)
--- NOTE | 2021-11-21 09:34 | NUR ---
SW Family Contact: SW contacted patient's partner Kya ([phone]) and stated that pt will be discharged back to [facility] 11/22 at 4pm. She was agreeable with this.
[2021-11-21] MEDS: DIVALPROEX SODIUM 125 MG CAP.SPRINK PO SCH ×2 (12:20→21:06)
[2021-11-21] MEDS: RIVASTIGMINE TARTRATE 1.5 MG CAPSULE PO SCH ×2 (12:20→21:05)
[2021-11-21] MEDS: risperiDONE 1 MG TABLET PO SCH ×2 (12:20→21:05)
[2021-11-21 19:52] VITALS: BP 148/71
[2021-11-22 08:00] VITALS: BP 145/74
--- NOTE | 2021-11-22 08:07 | NUR ---
SW Discharge Note: Pt will be discharged to [facility] (SNF) located at [address] [place] [id number]; ([phone]). Pt will be transported via the facility pickup around 4PM. Pts partner Kya ([phone]), has been informed. Upon discharge, the pt appears to be in a euthymic mood and presents with a calm affect. Pt appears to be alert and oriented x2 (self,place). Pt denies both suicidal and homicidal ideation as well as auditory and visual hallucinations. Pt appears to be ungroomed and appears to be ambulatory with a steady gait. Pt will be under the care of his psychiatrist, Dr. Thompson, located at [address] [place] [address]; and team leader/research psychologist, Dr. Cohen, located at [address] [place] [address] [address], [place] [address]; . Pt signed the Choice of Vendor and the multidisciplinary exit care form was signed, completed, and a copy was given to the pt.
[2021-11-22] MEDS: ASCORBIC ACID 500 MG TABLET PO SCH (08:35)
[2021-11-22] MEDS: LISINOPRIL (10MG) 10 MG TABLET PO SCH (08:35)
[2021-11-22] MEDS: CHOLECALCIFEROL 1,000 UNIT TABLET (VIT D3) PO SCH (08:35)
[2021-11-22] MEDS: METHIMAZOLE (5MG) 5 MG TABLET PO SCH (08:36)
[2021-11-22] MEDS: RIVASTIGMINE TARTRATE 1.5 MG CAPSULE PO SCH (12:28)
[2021-11-22] MEDS: DIVALPROEX SODIUM 125 MG CAP.SPRINK PO SCH (12:28)
[2021-11-22] MEDS: risperiDONE 1 MG TABLET PO SCH (12:28)
[2021-11-22 16:10] VITALS: BP 149/81
--- NOTE | 2021-11-22 16:45 | NUR ---
Pt has been discharged to [facility] (SNF) located at [address] [facility], [place] [address]; ([phone]). Pt left unit @ 1645 escorted by [facility] GPS staff via w/c. Pt transported via the facility pickup. Pts partner Kya ([phone]), has been informed. Upon discharge, Pt appears to be alert and oriented x2 (self,place). Pt denies both suicidal and homicidal ideation as well as auditory and visual hallucinations. Pt appears to be groomed and appears to be ambulatory with a steady gait. Pt will be under the care of his psychiatrist, Dr. Thompson, located at [address] [place] [address]; and ammonium nitrate crystallizer, Dr. Cohen, located at [address], [place] [address]; . Pt signed the Choice of Vendor and the multidisciplinary exit care form was signed, completed, and a copy was given to the pt. Exit care and after care instructions, education and documents signed and placed in discharge packet. Pt refused skin pictures. All belongings and valuables signed and returned. Medication reconciliation list for medical and psychiatric meds in discharge packet. Report called to [facility]. Report given to Janet BENTON.
== END 2021-11-22 19:11 | DRG 885 ==
LOC: ER 19:59 → EDBD 19:59 → GPS 11-08 02:01
PROVIDERS: ADMIT Psychiatry & Neurology Psychiatry; ATTEND Internal Medicine
DX: F39 Unspecified mood [affective] disorder (principal); E44.1 Mild protein-calorie malnutrition; F29 Unspecified psychosis not due to a substance or known physiological condition; E03.9 Hypothyroidism, unspecified; G30.9 Alzheimer's disease, unspecified; F02.80 Dementia in other diseases classified elsewhere, unspecified severity, without behavioral disturbance, psychotic disturbance, mood disturbance, and anxiety; Z20.822 Contact with and (suspected) exposure to COVID-19; E78.5 Hyperlipidemia, unspecified; K21.9 Gastro-esophageal reflux disease without esophagitis; K58.9 Irritable bowel syndrome, unspecified; F32.9 Major depressive disorder, single episode, unspecified; E04.9 Nontoxic goiter, unspecified; Z88.1 Allergy status to other antibiotic agents; Z88.5 Allergy status to narcotic agent; Z91.09 Other allergy status, other than to drugs and biological substances; I10 Essential (primary) hypertension; E88.09 Other disorders of plasma-protein metabolism, not elsewhere classified; Z73.6 Limitation of activities due to disability
CPT/HCPCS: 36415; 70450-TC; 80048-TC; 80053-TC; 80061-TC; 80076-TC; 80164-TC; 82962-TC; 83735-TC; 84443-TC; 85025-TC; 87081-TC; C9803; G0480; J3486

== ENCOUNTER 2022-06-30 10:57 | Inpatient (IN) | payer MEDICARE, OTHER ==
[~2022-06-30] VITALS: Ht 157.5 cm; Wt 65.8 kg
[~2022-06-30 10:57] MED LIST: ALIS150T PO; ASCO500C18 PO; CHOL400T11 PO; METH5TAB6 PO
--- NOTE | 2022-06-30 11:16 | NUR ---
YOKO WASSERMAN FROM [facility] FOR L HIP FRACTURE S/P FALLING OFF OF HER WHEELCHAIR LAST NIGHT, XRAY DONE THIS MORNING CONFIRIMING L FEMORAL NECK FRACTURE. TO ER BED 4, HOOKED TO MONITOR, CHANGED TO HOSP GOWN, WARM BLANKLET PROVIDED. PATIENT AAOx1. BREATHING EVEN AND UNLABORED. AWAITING MD COREA
--- NOTE | 2022-06-30 11:17 | NUR ---
DR WALSH AT BEDSIDE
--- NOTE | 2022-06-30 11:29 | NUR ---
MOVE SHEET SUBMITTED.
[2022-06-30 11:47] LABS: BASOPHILS % (AUTO) 0.2 % (0.0-2.0); EOSINOPHILS % (AUTO) 0.3 % (0.0-6.0); HEMATOCRIT 45 % (33-45); HEMOGLOBIN 15.1 g/dL (11.5-14.8); LYMPHOCYTES # (AUTO) 1.2 K/uL (0.8-4.8); LYMPHOCYTES % (AUTO) 10.2 % (20.0-44.0); MEAN CORPUSCULAR HGB CONC 33 g/dl (31.0-36.0); MEAN CORPUSCULAR VOLUME 88 fL (82-100); MONOCYTES % (AUTO) 8.5 % (2.0-12.0); NEUTROPHILS # (AUTO) 9.2 K/uL (1.8-8.9); NEUTROPHILS % (AUTO) 80.8 % (43.0-81.0); PLATELET COUNT (AUTO) 309 K/uL (150-450); RED BLOOD CELL COUNT(AUTO) 5.14 MIL/uL (4.0-5.2); WHITE BLOOD COUNT (AUTO) 11.4 K/uL (4.3-11.0)
[2022-06-30 11:57] LABS: CALCIUM, SERUM 9.1 mg/dL (8.5-10.1); CREATININE 0.8 mg/dL (0.6-1.3); POTASSIUM 3.5 mmol/L (3.5-5.1)
[2022-06-30 12:04] LABS: ALBUMIN 3.4 g/dL (3.4-5.0); BILIRUBIN,DIRECT 0.2 mg/dL (0.0-0.2); BILIRUBIN,TOTAL 0.6 mg/dL (0.2-1.0); TOTAL PROTEIN, SERUM 7.8 g/dL (6.4-8.2)
--- NOTE | 2022-06-30 12:17 | NUR ---
COVID SWAB DONE AND SENT TO LAB
--- NOTE | 2022-06-30 12:20 | NUR ---
resting and asleepy no sob
[2022-06-30] MEDS ORDERED: ZINC220T4 PO (12:27)
[2022-06-30] MEDS ORDERED: TRAZ-182 PO (12:27)
[2022-06-30] MEDS ORDERED: MULT-439 PO (12:27)
[2022-06-30] MEDS ORDERED: LISI-768 PO (12:27)
[2022-06-30] MEDS ORDERED: BISA10SU11 RC (12:27)
[2022-06-30] MEDS ORDERED: ACET325T53 PO (12:27)
[2022-06-30] MEDS ORDERED: AMIN887L PO (12:27)
[2022-06-30] MEDS ORDERED: MELA3TAB41 PO (12:27)
[2022-06-30] MEDS ORDERED: FERR325T23 PO (12:27)
[2022-06-30] MEDS ORDERED: RISP0.5T5 PO (12:27)
--- NOTE | 2022-06-30 12:36 | NUR ---
CONTACTED ORTHO DR. KING SPEAKING WITH ER
[2022-06-30] MEDS ORDERED: MAG HYDROX/AL HYDROX/SIMETH 30 ML UDC PO PRN (13:00)
[2022-06-30] MEDS ORDERED: BISACODYL SUPP (10 MG) 10 MG/SUPP.RECT SUPP.RECT RC PRN (13:00)
[2022-06-30] MEDS ORDERED: Z GUARD REMEDY 4 OZ OINT TP PRN (13:00)
[2022-06-30] MEDS ORDERED: ONDANSETRON HCL/PF 4 MG/2 ML VIAL IVP PRN (13:00)
[2022-06-30] MEDS ORDERED: ACETAMINOPHEN 325 MG TABLET PO PRN (13:00)
--- NOTE | 2022-06-30 13:30 | NUR ---
TO CT SCAN
--- NOTE | 2022-06-30 13:43 | NUR ---
GOT BED 310-1
[2022-06-30] MEDS ORDERED: DEXTROSE 50%-WATER 50 ML DISP.SYRIN IV PRN (14:00)
--- NOTE | 2022-06-30 14:08 | NUR ---
HAND OFF YARI BENTON TO OOM 310-1 VIA TERRI
--- NOTE | 2022-06-30 15:30 | NUR ---
PUPIL PERSONNEL SERVICES DIRECTOR NOTE ADMITTED THIS 87 Y/O FEMALE PATIENT FROM [facility]. CAME TO THE UNIT @1350, TRANSPORTED VIA GURNEY. ACCOMPANIED BY COMPUTER SCIENCES PROFESSOR. WITH ADMITTING DIAGNOSIS OF LEFT HIP FRACTURE. PATIENT IS AWAKE, A/O X1-2, VERBALLY RESPONSIVE. NO SIGNS OF ACUTE RESPIRATORY DISTRESS NOTED. STABLE ON ROOM AIR, NO SOB NOTED, BREATHING EVEN AND UNLABORED. NOTED WITH IV ACCESS ON RIGHT ANTECUBITAL AREA #20G, INTACT AND PATENT. PATIENT DOESN'T HAVE BELONGINGS ON ADMISSION. BODY ASSESSMENT DONE. NOTED WITH SACRAL WOUND, PERINEAL AREA EXCORIATION, LEFT FORE ARM SCAB, LEFT HEEL SCAB. ALSO NOTED WITH LEFT BREAST MASTECTOMY. ROUTINE ADMISSION CARE RENDERED. SAFETY MEASURE IN PLACE. BED IN LOWEST AND LOCKED POSITION, SIDE RAILS UP X3, CALL LIGHT PLACED WITHIN EASY REACH. WILL CONTINUE TO MONITOR PATIENT.
[2022-06-30 16:00] VITALS: BP 132/76
[2022-06-30] MEDS: BLOOD SUGAR DIAGNOSTIC 1 EACH STRIP IN SCH ×2 (17:20→21:56)
[2022-06-30] MEDS: METHIMAZOLE (5MG) 5 MG TABLET PO SCH (17:20)
[2022-06-30] MEDS: INSULIN REGULAR, HUMAN 100 UNIT/ML 3 ML VIAL SQ PRN ×2 (17:20→21:57)
[2022-06-30] MEDS: PROSOURCE / PROSTAT (PYXIS) 30 ML UDC PO SCH (17:21)
[2022-06-30] MEDS: IV NS 0.9% 1,000 ML IV PRN (17:51)
[2022-06-30] MEDS: MORPHINE SULFATE INJ 2 MG/ML DISP.SYRIN IV PRN (18:38)
--- NOTE | 2022-06-30 18:49 | NUR ---
RN CLOSING NOTES PATIENT IN BED AWAKE, A/O X1-2, VERBALLY RESPONSIVE. READING A BOOK. NO SIGNS OF ACUTE DISTRESS NOTED. STABLE ON ROOM AIR. IV ACCESS ON RIGHT AC #20G, INTACT AND PATENT WITH NS @ 100ML/HR RUNNING. MORPHINE GIVEN FOR PAIN. REPOSITIONED FOR COMFORT. ALL NEEDS ANTICIPATED AND ATTENDED. CALL LIGHT PLACED WITHIN EASY REACH WILL CONTINUE TO MONITOR PATIENT.
--- NOTE | 2022-06-30 19:30 | NUR ---
RN OPENING NOTE PATIENT IN BED, AWAKE. PATIENT IS A/O X 1, CONFUSED. PATIENT IS ON RA, TOLERATING WELL. PATIENT HAS A IBARRA CATH ON, NO OUTPUT AT THIS TIME, WILL CHECK. RAC 20 G PATNET AND INTACT WITH NS AT 100 ML/HR ONGOING. PATIENT DOES NOT SEEM TO BE IN PAIN AT THIS TIME VIA FLACC. SAFETY MEASURES IN PLACE: BED LOCKED AND IN LOWEST POSITION, CALL LIGHT WITHIN REACH, SIDE RAILS UP. WILL MONITOR PATIENT CLOSELY.
[2022-06-30 20:00] VITALS: BP 134/71
--- NOTE | 2022-06-30 20:40 | NUR ---
RN NOTE IBARRA CATHETER RE-INSERTED, 16 F WITH YELLOW URINE DRAINING. PREVIOUS IBARRA CATH NO OUTPUT, NOT IN THE RIGHT PLACE. URINE SPECIMEN COLLECTED AND PLACED IN SPECIMEN FRIDGE.
[2022-06-30] MEDS: risperiDONE 1 MG TABLET PO SCH (21:49)
[2022-06-30] MEDS: TRAZODONE 50 MG TABLET PO SCH (21:49)
--- NOTE | 2022-06-30 21:57 | NUR ---
RN NOTE BS 109 MG/DL, NO COVERAGE GIVEN. FED PATIENT APPLE SAUCE. WILL MONITOR FOR HYPO/HYPERGLYCEMIA.
[2022-06-30] MEDS ORDERED: MAGNESIUM HYDROXIDE 30 ML UDC PO PRN (22:00)
[2022-06-30] MEDS ORDERED: Medication Not On Formulary EA (Melatonin 3 MG) PO SCH (22:00)
[2022-06-30] MEDS ORDERED: ZOLPIDEM TARTRATE 5 MG TABLET PO PRN (22:00)
--- NOTE | 2022-07-01 03:43 | NUR ---
RN ROXI NOTE TRANSFERRED PATIENT CARE TO JAYDEN RN, PATIENT WAS SEEN WITH EYES CLOSED. NOT IN ANY APPARENT DISTRESS.
--- NOTE | 2022-07-01 04:00 | NUR ---
MS RN NOTES RECEIVED REPORT FROM SERENITY LAMB,PATIENT ON BED,CALM AND QUIET,NO PAIN AT THE MOMENT,CALL LIGHT IN REACH,NEEDS ANTICIPATED.
--- NOTE | 2022-07-01 05:33 | NUR ---
MS RN NOTES ACCU-CHECK BLOOD SUGAR CHECK 124MG/DL,NO INSULIN COVERAGE
--- NOTE | 2022-07-01 06:21 | NUR ---
MS RN NOTES FAIRLY TESTED AT NIGHT,PAIN TOLERABLE AT THE MOMENT,IVF INFUSING WELL ON RIGHT AC SALINE LOCK.NPO POST MIDNIGHT TONIGHT FOR SURGERY TOMORROW,SURGICAL CHECKLIST ON CHART.BLOOD SUGAR WNL,FALL RISK,BED ON LOWEST POSITION AND LOCKED,IBARRA CATH IN PLACE,CALL LIGHT IN REACH,NEEDS ATTENDED.
[2022-07-01 06:41] LABS: BASOPHILS % (AUTO) 0.2 % (0.0-2.0); EOSINOPHILS % (AUTO) 0.3 % (0.0-6.0); HEMATOCRIT 42 % (33-45); HEMOGLOBIN 13.7 g/dL (11.5-14.8); LYMPHOCYTES # (AUTO) 1.6 K/uL (0.8-4.8); LYMPHOCYTES % (AUTO) 13.9 % (20.0-44.0); MEAN CORPUSCULAR HGB CONC 33 g/dl (31.0-36.0); MEAN CORPUSCULAR VOLUME 90 fL (82-100); MONOCYTES % (AUTO) 8.7 % (2.0-12.0); NEUTROPHILS # (AUTO) 8.6 K/uL (1.8-8.9); NEUTROPHILS % (AUTO) 76.9 % (43.0-81.0); PLATELET COUNT (AUTO) 256 K/uL (150-450); RED BLOOD CELL COUNT(AUTO) 4.66 MIL/uL (4.0-5.2); WHITE BLOOD COUNT (AUTO) 11.1 K/uL (4.3-11.0)
[2022-07-01 07:23] LABS: CALCIUM, SERUM 8.6 mg/dL (8.5-10.1); CREATININE 0.8 mg/dL (0.6-1.3); MAGNESIUM 1.8 mg/dL (1.8-2.4); PHOSPHORUS 2.9 mg/dL (2.5-4.9); POTASSIUM 3.9 mmol/L (3.5-5.1)
[2022-07-01 07:56] LABS: BILIRUBIN,URINE NEGATIVE (NEGATIVE); COLOR,URINE YELLOW (YELLOW); LEUKOCYTE ESTERASE ,URINE NEGATIVE (NEGATIVE); NITRITE, URINE NEGATIVE (NEGATIVE); PH,URINE 5.5 (5.0-8.0); PROTEIN,URINE NEGATIVE (NEGATIVE); UGLUCOSE NEGATIVE (NEGATIVE); UROBILINOGEN,URINE 0.2 EU/dL (0.2)
[2022-07-01] MEDS: BLOOD SUGAR DIAGNOSTIC 1 EACH STRIP IN SCH ×4 (07:57→22:13)
[2022-07-01 08:00] VITALS: BP 154/60
[2022-07-01 08:30] LABS: BACTERIA,URINE Few /HPF (None Seen); RBC,URINE 0-2 /HPF (0-2)
[2022-07-01] MEDS: CHOLECALCIFEROL 1,000 UNIT TABLET (VIT D3) PO SCH (09:21)
[2022-07-01] MEDS: MULTIVIT W/MINERALS 1 TAB TABLET PO SCH (09:22)
[2022-07-01] MEDS: risperiDONE 1 MG TABLET PO SCH ×2 (09:22→21:06)
[2022-07-01] MEDS: FERROUS SULFATE (325 MG) 325 MG/TAB TABLET PO SCH (09:22)
[2022-07-01] MEDS: ZINC SULFATE 220 MG CAPSULE PO SCH (09:22)
[2022-07-01] MEDS: ASCORBIC ACID 500 MG TABLET PO SCH (09:22)
[2022-07-01] MEDS: LISINOPRIL (5MG) 5 MG TABLET PO SCH (09:23)
[2022-07-01] MEDS: PROSOURCE / PROSTAT (PYXIS) 30 ML UDC PO SCH (09:24)
[2022-07-01 16:00] VITALS: BP 161/69
[2022-07-01] MEDS: PROSOURCE / PROSTAT (PYXIS) 30 ML UDC GT SCH (16:07)
[2022-07-01] MEDS: MORPHINE SULFATE INJ 2 MG/ML DISP.SYRIN IV PRN (16:08)
--- NOTE | 2022-07-01 18:17 | NUR ---
RN Closing Note PT AOx2, pt is not able to express her own concerns or needs. Patient complains and cries when repositioned asking not to be moved. Provided care as needed, pt had 1 bowel movement throughout shift. Pt remained safe throughout shift, call light and table within reach, bed at lowest position. IV with no signs of infiltration. Tai cath patent. Pt remained safe throughout shift.
[2022-07-01] MEDS: INSULIN REGULAR, HUMAN 100 UNIT/ML 3 ML VIAL SQ PRN ×2 (19:12→22:33)
[2022-07-01 20:00] VITALS: BP 137/68
[2022-07-01] MEDS: ACETAMINOPHEN 325 MG TABLET PO PRN (20:07)
--- NOTE | 2022-07-01 20:21 | NUR ---
MS RN OPENING NOTE PATIENT AWAKE IN BED, ALERT/ORIENTED X 1, PT CONFUSED. PATIENT STABLE ON RA, NO S/S OF DISTRESS OR SOB NOTED, BREATHING EVEN AND UNLABORED. IV ACCESS ON RIGHT AC #20G INTACT AND INFUSING NS @ 100 ML/HR. IBARRA CATHETER IN PLACE AND DRAINING YELLOW URINE. PATIENT TO BE NPO AT MIDNIGHT FOR SURGERY IN AM. PATIENT NOTED WITH FEVER, 100.4, TYLENOL 650 MG IVEN ORDERED. SAFETY MEASURES IN PLACE: CALL LIGHT WITHIN REACH, SIDE RAILS UP X 3, BED LOCKED IN LOWEST POSITION, BED ALARM ON. WILL CONTINUE TO MONITOR PATIENT
[2022-07-01] MEDS: TRAZODONE 50 MG TABLET PO SCH (22:13)
--- NOTE | 2022-07-01 22:29 | NUR ---
MS RN NOTE REASSESSED PATIENT'S TEMP NOW 98.7. CHECKED PATIENT'S BLOOD SUGAR AND WAS 61. FED PATIENT APPLE SAUCE AND ORANGE JUICE WITH SUGAR SINCE SHE WILL BE NPO AFTER MIDNIGHT FOR SURGERY. WILL CONTINUE TO MONITOR PATIENT
[2022-07-02] VITALS (8 sets, daily range): BP systolic 115–156; BP diastolic 36–85
[2022-07-02] MEDS: IV NS 0.9% 1,000 ML IV PRN ×2 (02:40→16:57)
[2022-07-02 06:21] LABS: BASOPHILS % (AUTO) 0.2 % (0.0-2.0); EOSINOPHILS % (AUTO) 1.8 % (0.0-6.0); HEMATOCRIT 40 % (33-45); HEMOGLOBIN 13.2 g/dL (11.5-14.8); LYMPHOCYTES # (AUTO) 1.6 K/uL (0.8-4.8); LYMPHOCYTES % (AUTO) 13.6 % (20.0-44.0); MEAN CORPUSCULAR HGB CONC 33 g/dl (31.0-36.0); MEAN CORPUSCULAR VOLUME 90 fL (82-100); MONOCYTES # (AUTO) 1.2 K/uL (0.1-1.30); MONOCYTES % (AUTO) 10.3 % (2.0-12.0); NEUTROPHILS # (AUTO) 8.6 K/uL (1.8-8.9); NEUTROPHILS % (AUTO) 74.1 % (43.0-81.0); PLATELET COUNT (AUTO) 232 K/uL (150-450); RED BLOOD CELL COUNT(AUTO) 4.47 MIL/uL (4.0-5.2); WHITE BLOOD COUNT (AUTO) 11.7 K/uL (4.3-11.0)
--- NOTE | 2022-07-02 06:29 | NUR ---
MS RN CLOSING NOTE PATIENT AWAKE IN BED, ALERT/ORIENTED X 1, PT CONFUSED. NO SIGNIFICANT CHANGES THROUGHOUT SHIFT, PT SLEPT WELL THROUGH THE NIGHT. PATIENT STABLE ON RA, NO S/S OF DISTRESS OR SOB NOTED, BREATHING EVEN AND UNLABORED. IV ACCESS ON RIGHT AC #20G INTACT AND INFUSING NS @ 100 ML/HR. IBARRA CATHETER IN PLACE AND DRAINING YELLOW URINE. PATIENT KEPT NPO SINCE MIDNIGHT FOR SURGERY AT 9 AM. MEDICATIONS GIVEN ORDERED, PT NEEDS MET THROUGHOUT SHIFT. SAFETY MEASURES IN PLACE: CALL LIGHT WITHIN REACH, SIDE RAILS UP X 3, BED LOCKED IN LOWEST POSITION, BED ALARM ON. WILL ENDORSE TO DAYSHIFT NURSE FOR CONTINUITY OF CARE
--- NOTE | 2022-07-02 06:30 | NUR ---
MS RN NOTES Patient in bed alert oriented x 1 confused. No acute distress noted. Breathing unlabored. IV access patent and intact, no redness, no swelling noted. Tai catheter patent and intact draining well with clear yellow urine. Head of bed elevated. Safety measures in place. Call light within reach. Will continue to monitor accordingly. Addendum: 07/02/22 at 1348 by DOYLE REES RN ERROR- DISREGARD ABOVE NOTES, WRONG ENTRY
[2022-07-02] MEDS: BLOOD SUGAR DIAGNOSTIC 1 EACH STRIP IN SCH ×4 (06:34→22:01)
[2022-07-02] MEDS: INSULIN REGULAR, HUMAN 100 UNIT/ML 3 ML VIAL SQ PRN ×3 (06:35→22:03)
[2022-07-02 06:46] LABS: CALCIUM, SERUM 8.5 mg/dL (8.5-10.1); CREATININE 0.7 mg/dL (0.6-1.3); POTASSIUM 3.9 mmol/L (3.5-5.1)
--- NOTE | 2022-07-02 07:30 | NUR ---
MS RN NOTES Patient in bed alert oriented x 1 confused. No acute distress noted. Breathing unlabored. IV access patent and intact, no redness, no swelling noted. Tai catheter patent and intact draining well with clear yellow urine. Head of bed elevated. Safety measures in place. Call light within reach. Will continue to monitor accordingly.
[2022-07-02] MEDS ORDERED: ANESTHESIA TRAY IN PYXIS 1 EA TRAY MC ONE (08:29)
[2022-07-02] MEDS ORDERED: BUPIVACAINE 0.5 % PF 150 MG/30 ML VIAL ONE (08:30)
[2022-07-02] MEDS ORDERED: HYDROMORPHONE INJ 2 MG/ML DISP.SYRIN ONE (08:59)
[2022-07-02] MEDS ORDERED: ROCURONIUM BROMIDE 50 MG/5 ML ONE (08:59)
[2022-07-02] MEDS: MULTIVIT W/MINERALS 1 TAB TABLET PO SCH (09:00)
[2022-07-02] MEDS: CHOLECALCIFEROL 1,000 UNIT TABLET (VIT D3) PO SCH (09:00)
[2022-07-02] MEDS: FERROUS SULFATE (325 MG) 325 MG/TAB TABLET PO SCH (09:00)
[2022-07-02] MEDS: ZINC SULFATE 220 MG CAPSULE PO SCH (09:00)
[2022-07-02] MEDS: PROSOURCE / PROSTAT (PYXIS) 30 ML UDC GT SCH ×2 (09:00→16:57)
[2022-07-02] MEDS: ASCORBIC ACID 500 MG TABLET PO SCH (09:00)
[2022-07-02] MEDS: risperiDONE 1 MG TABLET PO SCH ×2 (09:00→21:10)
[2022-07-02] MEDS: LISINOPRIL (5MG) 5 MG TABLET PO SCH (09:00)
--- NOTE | 2022-07-02 09:00 | NUR ---
PATIENT TRANSPORTED TO OPERATING ROOM IN STABLE CONDITION
[2022-07-02] MEDS ORDERED: TRANEXAMIC ACID 1,000 MG in SODIUM CHLORIDE IRRIG SOLUTION 90 ML IR ONE (09:30)
[2022-07-02] MEDS ORDERED: BUPIVACAINE 0.25% 75 MG/30 ML VIAL ONE (10:50)
[2022-07-02 12:13] LABS: HEMOGLOBIN 12.6 g/dL (11.5-14.8)
--- NOTE | 2022-07-02 12:40 | NUR ---
MS RN NOTES PATIENT CAME BACK FROM SURGERY IN STABLE CONDITION, EYES CLOSED, EASILY AWAKEN, NO FACIAL GRIMACING NOTED. LEFT HIP SURGICAL DRESSING IN PLACE, ABDUCTOR PILLOW IN PLACE. VITAL SIGNS STABLE. WILL CONTINUE TO MONITOR
[2022-07-02] MEDS ORDERED: ENOXAPARIN SODIUM 40 MG/0.4 ML DISP.SYRIN SQ SCH (13:00)
--- NOTE | 2022-07-02 13:40 | NUR ---
MS RN NOTES VITAL SIGNS REMAIN STABLE, EASILY AWAKEN. NO FACIAL GRIMACING NOTED. EASILY AWAKEN, ALERT ORIENTED X 1.
[2022-07-02] MEDS: ANCEF 1 GM/50 ML D5W IV SCH ×2 (17:51)
--- NOTE | 2022-07-02 19:00 | NUR ---
MS RN CLOSING NOTES Patient in bed alert oriented x 1 confused. No acute distress noted. Breathing unlabored. IV access patent and intact, no redness, no swelling noted. Tai catheter patent and intact draining well with clear yellow urine. Left hip surgery site with dressing clean dry and intact. Abduction pillow in place at all times. No facial grimacing noted. Patient remain stable through out the shift. Head of bed elevated. Safety measures in place. Call light within reach.Needs attended and anticipated. Will endorse to night nurse for continuity of care
--- NOTE | 2022-07-02 19:30 | NUR ---
veena rn opening received patient in bed, humming, confused a/ox0-- patient re-oriented. no s/s of apparent distress on room air. denies pain at this time. r. ac running ns @100ml/hr. chiu cath draining clear, dark yellow urine. l. hip dressing clean, dry and intact at the moment, with abduction pillow in place. safety in place. will continue with patient's care plan.
[2022-07-02] MEDS: TRAZODONE 50 MG TABLET PO SCH (21:10)
[2022-07-03] MEDS: ANCEF 1 GM/50 ML D5W IV SCH ×4 (01:56→09:20)
[2022-07-03] MEDS: MORPHINE SULFATE INJ 2 MG/ML DISP.SYRIN IV PRN (05:29)
[2022-07-03] MEDS: BLOOD SUGAR DIAGNOSTIC 1 EACH STRIP IN SCH ×4 (06:55→22:24)
[2022-07-03] MEDS: INSULIN REGULAR, HUMAN 100 UNIT/ML 3 ML VIAL SQ PRN ×4 (06:57→22:24)
--- NOTE | 2022-07-03 07:25 | NUR ---
RN OPENING NOTES RECEIVED PATIENT IN BED, AWAKE, A/O X1, WITH CONFUSION. VERBALLY RESPONSIVE. NO SIGNS OF ACUTE DISTRESS NOTED. ON ROOM AIR, NO SOB NOTED, BREATHING EVEN AND UNLABORED. NO S/SX OF PAIN AT THIS TIME. NOTED WITH NO IV ACCESS, PER NOC NURSE, PT PULLED OUT LINE. MIDLINE INSERTION WAS ORDERED. WITH F/C INTACT DRAINING JOAQUIN COLORED URINE. DRESSING ON LEFT HIP NOTED, C/D/I. WITH ABDUCTOR PILLOW IN PLACE. SAFETY MEASURE IN PLACE. BED IN LOWEST AND LOCKED POSITION. SIDE RAILS UP X3, CALL LIGHT PLACED WITHIN EASY REACH. WILL CONTINUE TO MONITOR PATIENT.
[2022-07-03 08:00] VITALS: BP 120/45
[2022-07-03 08:44] LABS: BASOPHILS % (AUTO) 0.1 % (0.0-2.0); EOSINOPHILS % (AUTO) 0.1 % (0.0-6.0); HEMATOCRIT 38 % (33-45); HEMOGLOBIN 12.3 g/dL (11.5-14.8); LYMPHOCYTES # (AUTO) 1.1 K/uL (0.8-4.8); LYMPHOCYTES % (AUTO) 7.6 % (20.0-44.0); MEAN CORPUSCULAR HGB CONC 32 g/dl (31.0-36.0); MEAN CORPUSCULAR VOLUME 91 fL (82-100); MONOCYTES # (AUTO) 1.3 K/uL (0.1-1.30); MONOCYTES % (AUTO) 8.4 % (2.0-12.0); NEUTROPHILS # (AUTO) 12.7 K/uL (1.8-8.9); NEUTROPHILS % (AUTO) 83.8 % (43.0-81.0); PLATELET COUNT (AUTO) 280 K/uL (150-450); RED BLOOD CELL COUNT(AUTO) 4.22 MIL/uL (4.0-5.2); WHITE BLOOD COUNT (AUTO) 15.1 K/uL (4.3-11.0)
[2022-07-03 08:52] LABS: CALCIUM, SERUM 8.6 mg/dL (8.5-10.1); CREATININE 0.8 mg/dL (0.6-1.3)
--- NOTE | 2022-07-03 09:00 | NUR ---
RN NOTE NEW PERIPHERAL LINE INSERTED BY SERENITY WILSON ON RIGHT FOREARM, #20G, COVERED WITH TRANSPARENT DRESSING.
[2022-07-03] MEDS: FERROUS SULFATE (325 MG) 325 MG/TAB TABLET PO SCH (09:10)
[2022-07-03] MEDS: ENOXAPARIN SODIUM 40 MG/0.4 ML DISP.SYRIN SQ SCH (09:10)
[2022-07-03] MEDS: PROSOURCE / PROSTAT (PYXIS) 30 ML UDC GT SCH ×2 (09:10→16:08)
[2022-07-03] MEDS: ASCORBIC ACID 500 MG TABLET PO SCH (09:10)
[2022-07-03] MEDS: MULTIVIT W/MINERALS 1 TAB TABLET PO SCH (09:10)
[2022-07-03] MEDS: ZINC SULFATE 220 MG CAPSULE PO SCH (09:10)
[2022-07-03] MEDS: LISINOPRIL (5MG) 5 MG TABLET PO SCH (09:11)
[2022-07-03] MEDS: risperiDONE 1 MG TABLET PO SCH ×2 (09:11→22:16)
[2022-07-03] MEDS: CHOLECALCIFEROL 1,000 UNIT TABLET (VIT D3) PO SCH (09:11)
[2022-07-03] MEDS: IV NS 0.9% 1,000 ML IV PRN ×2 (09:20→23:37)
--- NOTE | 2022-07-03 10:38 | NUR ---
WOUND CARE CONSULT: PT PRESENTS WITH SCARRING TO SACRUM AND BUTTOCKS WITH INTACT DEEP TISSUE INJURY TO SACRUM, PRESENT ON ADMISSION. RECOMMENDATIONS MADE FOR SKIN PROTECTION. DISCUSSED WITH NURSING STAFF. PT IS ON ERICK ISOFLEX LOW AIRLOSS BED. MD IN AGREEMENT WITH PLAN OF CARE. IBARRA CATH NOTED.
[2022-07-03] MEDS: METHIMAZOLE (5MG) 5 MG TABLET PO SCH (12:12)
[2022-07-03 16:00] VITALS: BP 135/54
--- NOTE | 2022-07-03 18:40 | NUR ---
RN CLOSING NOTE PATIENT IN BED, ASLEEP, A/O X1, WITH CONFUSION. NO SIGNS OF ACUTE DISTRESS NOTED. REMAINS STABLE ON ROOM AIR, NO SOB NOTED, BREATHING EVEN AND UNLABORED. NO S/SX OF PAIN AT THIS TIME. IV ACCESS ON RIGHT FOREARM #20G, INTACT AND PATENT, WITH NS @100 ML/HR RUNNING. WITH F/C INTACT DRAINING JOAQUIN COLORED URINE. DRESSING ON LEFT HIP NOTED, C/D/I. WITH ABDUCTOR PILLOW IN PLACE. ALL DUE MEDS GIVEN, TAKEN WELL. SAFETY MEASURE IN PLACE. BED IN LOWEST AND LOCKED POSITION. SIDE RAILS UP X3, CALL LIGHT PLACED WITHIN EASY REACH. WILL ENDORSE TO NEXT SHIFT FOR CONTINUITY OF CARE.
--- NOTE | 2022-07-03 19:30 | NUR ---
noc rn opening received patient in bed with eyes closed, easy to arouse. patient is baseline confused. patient not exhibiting flacc at this time. iv ns running @100mls/hr. lt. hip dressing noted to be clean, dry and intact. chiu cath draining dark yellow urine. safety in place. will continue with plan of care for patient.
[2022-07-03 20:00] VITALS: BP 144/61
[2022-07-03] MEDS: TRAZODONE 50 MG TABLET PO SCH (22:00)
--- NOTE | 2022-07-03 22:16 | NUR ---
non-admin patient refused 2100 dose of risperidone and 2200 dose of trazodone. patient is very confused and uncooperative. opened tabs of medications disposed in proper disposal bin, with RNNorris to witnessed.
[2022-07-04] MEDS: INSULIN REGULAR, HUMAN 100 UNIT/ML 3 ML VIAL SQ PRN ×4 (06:35→22:23)
[2022-07-04] MEDS: BLOOD SUGAR DIAGNOSTIC 1 EACH STRIP IN SCH ×4 (06:35→22:14)
--- NOTE | 2022-07-04 06:49 | NUR ---
noc rn closing note patient in bed with eyes closed, easy to arouse. no significant change with mentation. no s/s of apparent distress. not exhibiting pain via flacc. iv ns running @100mls/hr. chiu draining clear, dark yellow urine with uo of 50mls. all needs attended. patient refused po meds. safety kept in place the whole shift. lt. hip dressing dry, clean, and intact, abduction pillow kept at all times. will cont. with plan of care for patient.
--- NOTE | 2022-07-04 07:35 | NUR ---
RN OPENING NOTE RECEIVED PATIENT LYING IN BED, AWAKE, A/O X1, WITH CONFUSION. NO SIGNS OF ACUTE DISTRESS NOTED. STABLE ON ROOM AIR, NO SOB NOTED, BREATHING EVEN AND UNLABORED. NO S/SX OF NON-VERBAL CUES OF PAIN. IV ACCESS ON RIGHT FOREARM #20G, INTACT AND PATENT, WITH NS @100 ML/HR RUNNING. WITH F/C INTACT DRAINING JOAQUIN COLORED URINE. DRESSING ON LEFT HIP NOTED, C/D/I. WITH ABDUCTOR PILLOW IN PLACE. SAFETY MEASURE IN PLACE. BED IN LOWEST AND LOCKED POSITION. SIDE RAILS UP X3, CALL LIGHT AND TRAY TABLE WITHIN EASY REACH. WILL CONTINUE TO MONITOR DURING MY SHIFT.
[2022-07-04 08:47] VITALS: BP 153/65
[2022-07-04] MEDS: CHOLECALCIFEROL 1,000 UNIT TABLET (VIT D3) PO SCH (08:51)
[2022-07-04] MEDS: PROSOURCE / PROSTAT (PYXIS) 30 ML UDC GT SCH ×2 (08:51→17:12)
[2022-07-04] MEDS: FERROUS SULFATE (325 MG) 325 MG/TAB TABLET PO SCH (08:51)
[2022-07-04] MEDS: LISINOPRIL (5MG) 5 MG TABLET PO SCH (08:52)
[2022-07-04] MEDS: ENOXAPARIN SODIUM 40 MG/0.4 ML DISP.SYRIN SQ SCH (08:53)
[2022-07-04] MEDS: risperiDONE 1 MG TABLET PO SCH ×2 (08:55→21:50)
[2022-07-04] MEDS: MULTIVIT W/MINERALS 1 TAB TABLET PO SCH (08:56)
[2022-07-04] MEDS: ZINC SULFATE 220 MG CAPSULE PO SCH (08:56)
[2022-07-04] MEDS: ASCORBIC ACID 500 MG TABLET PO SCH (08:56)
[2022-07-04 10:00] LABS: BASOPHILS % (AUTO) 0.2 % (0.0-2.0); EOSINOPHILS % (AUTO) 0.4 % (0.0-6.0); HEMATOCRIT 35 % (33-45); HEMOGLOBIN 11.5 g/dL (11.5-14.8); LYMPHOCYTES # (AUTO) 1.3 K/uL (0.8-4.8); LYMPHOCYTES % (AUTO) 11.6 % (20.0-44.0); MEAN CORPUSCULAR HGB CONC 33 g/dl (31.0-36.0); MEAN CORPUSCULAR VOLUME 90 fL (82-100); MONOCYTES # (AUTO) 1.1 K/uL (0.1-1.30); MONOCYTES % (AUTO) 9.7 % (2.0-12.0); NEUTROPHILS # (AUTO) 8.6 K/uL (1.8-8.9); NEUTROPHILS % (AUTO) 78.1 % (43.0-81.0); PLATELET COUNT (AUTO) 270 K/uL (150-450); RED BLOOD CELL COUNT(AUTO) 3.83 MIL/uL (4.0-5.2)
[2022-07-04 10:16] LABS: CALCIUM, SERUM 8.1 mg/dL (8.5-10.1); CREATININE 0.7 mg/dL (0.6-1.3); POTASSIUM 3.3 mmol/L (3.5-5.1)
[2022-07-04] MEDS: IV NS 0.9% 1,000 ML IV PRN (10:24)
[2022-07-04] MEDS: METHIMAZOLE (5MG) 5 MG TABLET PO SCH (12:31)
--- NOTE | 2022-07-04 15:00 | NUR ---
RN NOTES RECEIVED A CALL FROM KESHAV BTARES () THAT SHE DOESNT WANT FOR THE PATIENT TO GO BACK TO [facility]. ADVISED CM WILL CONTACT SINCE THERE IS A NOTE ON THE DC PLANNING.
--- NOTE | 2022-07-04 15:02 | NUR ---
RN NOTES - ADDED DEPAKOTE ALLERGY PER 'S ACCOUNT OF SEVERE HIVES PREVIOUSLY
[2022-07-04] MEDS ORDERED: ENOX40DI SQ (15:22)
[2022-07-04] MEDS ORDERED: PANT40TA2 PO (15:22)
--- NOTE | 2022-07-04 15:47 | NUR ---
RN NOTES SAW DISCHARGE ORDER FROM [facility] - CALLED VICTOR HUGO BLAKE TO INFORM REGARDING THE PATIENT'S 'S REQUEST TO NOT SENT PATIENT BACK TO THE SNF. SHE SAID SHE WILL CALL THE .
[2022-07-04 16:00] VITALS: BP 163/69
[2022-07-04] MEDS: GLUCERNA SHAKE 237 ML CAN PO SCH (17:12)
--- NOTE | 2022-07-04 18:05 | NUR ---
RN NOTES SACRAL WOUND CARE PROVIDED ORDERED - CLEANSED WITH NS, PATTED DRY AND COVERED WITH MEPILEX BORDERED DRESSING. PERINEAL CARE DONE.
--- NOTE | 2022-07-04 18:43 | NUR ---
RN CLOSING NOTE PATIENT LYING IN BED, WITH HEAD OF BED ELEVATED, AWAKE, A/O X1, WITH CONFUSION. NO SIGNS OF ACUTE DISTRESS NOTED. STILL STABLE ON ROOM AIR, NO SOB NOTED, BREATHING EVEN AND UNLABORED. NO S/SX OF NON-VERBAL CUES OF PAIN DURING MY SHIFT. IV ACCESS ON RIGHT FOREARM #20G, INTACT AND PATENT, WITH NS @100 ML/HR RUNNING. WITH F/C INTACT DRAINING JOAQUIN COLORED URINE. MAINTAINED ABDUCTOR PILLOW IN BETWEEN LEGS, DRESSING ON OPERATIVE SIGHT C/D/I. SAFETY MEASURE MAINTAINED: BED IN LOWEST AND LOCKED POSITION. SIDE RAILS UP X3, CALL LIGHT AND TRAY TABLE WITHIN EASY REACH. WILL ENDORSE TO THE HATCH TENDER NURSE.
[2022-07-04 20:00] VITALS: BP 135/86
[2022-07-04] MEDS: TRAZODONE 50 MG TABLET PO SCH (21:49)
--- NOTE | 2022-07-04 22:24 | NUR ---
ACCU CHECK Bld glucose 193mg/dl. Given 3 units insulin per SS parameters, cosigned by SERENITY DONNELLY.
[2022-07-05] MEDS: IV NS 0.9% 1,000 ML IV PRN ×2 (00:07→12:04)
--- NOTE | 2022-07-05 06:27 | NUR ---
END OF SHIFT REPORT Patient in bed, Alert Oriented x1 to self only. Stable on room air. IV right hand intact, IVF infusing. Afebrile throughout shift. Left hip incision dressing clean and dry, no bleed. Abduction pillow in place, hip precaution maintained. No BM during the shift. Tai cath care done, good urine output 750ml. Fall precaution maintained. Awaiting placement. Will endorse to oncoming RN.
[2022-07-05] MEDS: INSULIN REGULAR, HUMAN 100 UNIT/ML 3 ML VIAL SQ PRN ×4 (06:44→21:56)
[2022-07-05] MEDS: BLOOD SUGAR DIAGNOSTIC 1 EACH STRIP IN SCH ×4 (06:44→21:56)
--- NOTE | 2022-07-05 06:45 | NUR ---
ACCU CHECK Bld glucose 117mg/dl. No insulin per SS parameters.
[2022-07-05] MEDS: GLUCERNA SHAKE 237 ML CAN PO SCH ×2 (07:29→17:02)
--- NOTE | 2022-07-05 07:40 | NUR ---
MS RN OPENING NOTE RECEIVED PATIENT IN BED W HOB BED AT 30 DEGREES, AWAKE, A/O X1 TO SELF ONLY, WITH NOTED CONFUSION. ON ROOM AIR, NO SOB NOTED, BREATHING EVEN AND UNLABORED. NO SIGNS OF ACUTE DISTRESS NOTED. NO S/SX OF NON-VERBAL CUES OF PAIN. IV ACCESS ON RIGHT HAND #22G, INTACT AND PATENT, WITH NS @100 ML/HR RUNNING. WITH F/C INTACT DRAINING CLEAR YELLOW COLORED URINE. DRESSING ON LEFT HIP NOTED, C/D/I. STILL ABDUCTOR PILLOW IN PLACE. SAFETY MEASURE IN PLACE. BED IN LOWEST AND LOCKED POSITION. SIDE RAILS UP X3, CALL LIGHT AND TRAY TABLE WITHIN EASY REACH. WILL CONTINUE TO MONITOR DURING MY SHIFT.
--- NOTE | 2022-07-05 07:40 | NUR ---
RN OPENING NOTE RECEIVED PATIENT LYING IN BED, AWAKE, A/O X1, WITH CONFUSION. NO SIGNS OF ACUTE DISTRESS NOTED. STABLE ON ROOM AIR, NO SOB NOTED, BREATHING EVEN AND UNLABORED. NO S/SX OF NON-VERBAL CUES OF PAIN. IV ACCESS ON RIGHT FOREARM #22G, INTACT AND PATENT, WITH NS @100 ML/HR RUNNING COVERED WITH SLEEVES, REINFORCED WITH KERLIX WITHIN PATIENT IS PULLING IT FROM PREVIOUS SHIFTS. WITH F/C INTACT DRAINING CLEAR YELLOW COLORED URINE. DRESSING ON LEFT HIP NOTED, C/D/I. WITH ABDUCTOR PILLOW IN PLACE. SAFETY MEASURE IN PLACE. BED IN LOWEST AND LOCKED POSITION. SIDE RAILS UP X3, CALL LIGHT AND TRAY TABLE WITHIN EASY REACH. WILL CONTINUE TO MONITOR DURING MY SHIFT.
[2022-07-05 08:00] VITALS: BP 138/58
[2022-07-05] MEDS: FERROUS SULFATE (325 MG) 325 MG/TAB TABLET PO SCH (08:42)
[2022-07-05] MEDS: PROSOURCE / PROSTAT (PYXIS) 30 ML UDC GT SCH ×2 (08:42→17:00)
[2022-07-05] MEDS: ZINC SULFATE 220 MG CAPSULE PO SCH (08:43)
[2022-07-05] MEDS: ASCORBIC ACID 500 MG TABLET PO SCH (08:43)
[2022-07-05] MEDS: CHOLECALCIFEROL 1,000 UNIT TABLET (VIT D3) PO SCH (08:43)
[2022-07-05] MEDS: MULTIVIT W/MINERALS 1 TAB TABLET PO SCH (08:43)
[2022-07-05] MEDS: LISINOPRIL (5MG) 5 MG TABLET PO SCH ×3 (08:43→17:01)
[2022-07-05] MEDS: ENOXAPARIN SODIUM 40 MG/0.4 ML DISP.SYRIN SQ SCH (08:44)
[2022-07-05] MEDS: risperiDONE 1 MG TABLET PO SCH ×2 (08:52→21:37)
--- NOTE | 2022-07-05 09:05 | NUR ---
RN NOTES - PAIN MANAGEMENT GIVEN ACETAMINOPHEN 325 MG 2 TABS FOR ANTICIPATED PAIN DURING PT VISIT REQUESTED BY PT GURINDER. WILL CONTINUE TO MONITOR.
[2022-07-05] MEDS: ACETAMINOPHEN 325 MG TABLET PO PRN (09:12)
[2022-07-05] MEDS: METHIMAZOLE (5MG) 5 MG TABLET PO SCH (12:15)
[2022-07-05 16:00] VITALS: BP 120/54
--- NOTE | 2022-07-05 16:55 | NUR ---
RN NOTES - SPOKE TO KESHAV, , TO GIVE UPDATE REGARDING THE PATIENT'S CONDITION TODAY - NO CHANGES, INCREASED CONFUSION NOTED, EATING WHEN ENCOURAGED, SAFETY MEASURES EXPLAINED, DC PLANNING - SNF AWAITING.
--- NOTE | 2022-07-05 18:40 | NUR ---
RN CLOSING NOTE PATIENT LYING IN BED, AWAKE, A/O X1, WITH CONFUSION. NO SIGNS OF ACUTE DISTRESS NOTED. STILL STABLE ON ROOM AIR, NO SOB NOTED, BREATHING EVEN AND UNLABORED. NO S/SX OF NON-VERBAL CUES OF PAIN. IV ACCESS ON RIGHT FOREARM #22G, INTACT AND PATENT, WITH NS @100 ML/HR RUNNING COVERED WITH SLEEVE. WITH F/C INTACT DRAINING CLEAR YELLOW COLORED URINE. DRESSING ON LEFT HIP NOTED, C/D/I. WITH ABDUCTOR PILLOW IN PLACE. SAFETY MEASURE IN PLACE. BED IN LOWEST AND LOCKED POSITION. SIDE RAILS UP X3, CALL LIGHT AND TRAY TABLE WITHIN EASY REACH. ALL NEEDS MET AND DUE MEDS GIVEN. WILL ENDORSE TO THE STRIP POLISHER NURSE.
[2022-07-05 20:00] VITALS: BP 155/73
--- NOTE | 2022-07-05 20:03 | NUR ---
RN OPENING NOTES RECEIVED PT IN BED, AWAKE, WATCHING TV. AOx2, ORIENTED TO SELF. ON RA AND TOLERATING WELL. NO SOB NOTED. NO S/SX OF RESPIRATORY DISTRESS NOTED. IV ACCESS IN RIGHT HAND #22G RUNNING NS @ 100 ML/HR. SAFETY PRECAUTIONS IN PLACE: BED IN LOWEST, LOCKED POSITION, SIDERAILS UPx2, AND BRAKES ON. TABLE AND CALL LIGHT WITHIN REACH. ALL NEEDS MET AT THIS TIME.
[2022-07-05] MEDS: TRAZODONE 50 MG TABLET PO SCH (21:37)
[2022-07-06] MEDS: IV NS 0.9% 1,000 ML IV PRN (03:57)
--- NOTE | 2022-07-06 06:36 | NUR ---
RN CLOSING NOTES PT IN BED, AWAKE, WATCHING TV. AOx2, ORIENTED TO SELF. ON RA AND TOLERATING WELL. NO SOB NOTED. NO S/SX OF RESPIRATORY DISTRESS NOTED. IV ACCESS IN RIGHT HAND #22G RUNNING NS @ 100 ML/HR. ALL ORDERS CARRIED OUT. ALL NEEDS MET. PT KEPT CLEAN AND DRY. SAFETY PRECAUTIONS IN PLACE: BED IN LOWEST, LOCKED POSITION, SIDERAILS UPx2, AND BRAKES ON. TABLE AND CALL LIGHT WITHIN REACH. WILL ENDORSE TO ONCOMING SHIFT FOR ROXI.
--- NOTE | 2022-07-06 07:15 | NUR ---
ms rn received on bed, awake,oriented x2,confuse at times, s/p left hip arthroplasty, dno s/s of pain at this time, abdomen soft.positive bowel sounds,denies pain at this time,all needs attended.
--- NOTE | 2022-07-06 07:20 | NUR ---
ms rn patient on jr, denies pain at this time, no distress noted, will have PT eval today, for d/c planning as plannd,all needs attended.
--- NOTE | 2022-07-06 07:20 | NUR ---
ms galvan received on bed, awake,alert,oriented x4,s/p femorofemoral bypass, denies pain at this time Addendum: 07/06/22 at 1900 by NED ORR RN disregard notes.
[2022-07-06] MEDS: BLOOD SUGAR DIAGNOSTIC 1 EACH STRIP IN SCH ×3 (07:30→17:41)
[2022-07-06 08:00] VITALS: BP 147/77
[2022-07-06] MEDS: FERROUS SULFATE (325 MG) 325 MG/TAB TABLET PO SCH (10:18)
[2022-07-06] MEDS: CHOLECALCIFEROL 1,000 UNIT TABLET (VIT D3) PO SCH (10:19)
[2022-07-06] MEDS: ZINC SULFATE 220 MG CAPSULE PO SCH (10:19)
[2022-07-06] MEDS: ASCORBIC ACID 500 MG TABLET PO SCH (10:20)
[2022-07-06] MEDS: risperiDONE 1 MG TABLET PO SCH (10:20)
[2022-07-06] MEDS: MULTIVIT W/MINERALS 1 TAB TABLET PO SCH (10:20)
[2022-07-06] MEDS: LISINOPRIL (5MG) 5 MG TABLET PO SCH ×2 (10:23→17:41)
[2022-07-06 10:46] VITALS: BP 147/77
[2022-07-06] MEDS: GLUCERNA SHAKE 237 ML CAN PO SCH ×2 (10:57→17:00)
[2022-07-06] MEDS: PROSOURCE / PROSTAT (PYXIS) 30 ML UDC GT SCH ×2 (10:58→17:00)
[2022-07-06] MEDS: ENOXAPARIN SODIUM 40 MG/0.4 ML DISP.SYRIN SQ SCH (11:36)
[2022-07-06] MEDS: METHIMAZOLE (5MG) 5 MG TABLET PO SCH (14:09)
--- NOTE | 2022-07-06 16:00 | NUR ---
ms learning services coordinator called patient will be d/c at 630pm.
[2022-07-06 16:14] VITALS: BP 192/81
[2022-07-06 17:41] VITALS: BP 165/89
[2022-07-06] MEDS: INSULIN REGULAR, HUMAN 100 UNIT/ML 3 ML VIAL SQ PRN (18:41)
--- NOTE | 2022-07-06 19:39 | NUR ---
ms rn transferred to [facility] in stable condition, called report 3 x, nobody answer,all needs attended.
== END 2022-07-06 20:15 | DRG 521 ==
LOC: ER 11:14 → MED 13:49
PROVIDERS: ADMIT Nurse Practitioner Acute Care; ATTEND Student in an Organized Health Care Education/Training Program
PROC: 0SRS0J9 Replacement of Left Hip Joint, Femoral Surface with Synthetic Substitute, Cemented, Open Approach (ICD-10-PCS; principal; 2022-07-02)
DX: S72.142A Displaced intertrochanteric fracture of left femur, initial encounter for closed fracture (principal); G93.41 Metabolic encephalopathy; J98.11 Atelectasis; G62.9 Polyneuropathy, unspecified; Z20.822 Contact with and (suspected) exposure to COVID-19; E05.90 Thyrotoxicosis, unspecified without thyrotoxic crisis or storm; W05.0XXA Fall from non-moving wheelchair, initial encounter; Y92.129 Unspecified place in nursing home as the place of occurrence of the external cause; D72.829 Elevated white blood cell count, unspecified; Z91.199 Patient's noncompliance with other medical treatment and regimen due to unspecified reason; M81.0 Age-related osteoporosis without current pathological fracture; E78.5 Hyperlipidemia, unspecified; F02.80 Dementia in other diseases classified elsewhere, unspecified severity, without behavioral disturbance, psychotic disturbance, mood disturbance, and anxiety; I10 Essential (primary) hypertension; G30.9 Alzheimer's disease, unspecified; I70.0 Atherosclerosis of aorta; J44.9 Chronic obstructive pulmonary disease, unspecified; F25.9 Schizoaffective disorder, unspecified; K21.9 Gastro-esophageal reflux disease without esophagitis; K58.9 Irritable bowel syndrome, unspecified; L89.152 Pressure ulcer of sacral region, stage 2; E11.42 Type 2 diabetes mellitus with diabetic polyneuropathy; E04.9 Nontoxic goiter, unspecified; Z85.3 Personal history of malignant neoplasm of breast; Z90.12 Acquired absence of left breast and nipple; Z88.1 Allergy status to other antibiotic agents; Z88.5 Allergy status to narcotic agent; Z88.8 Allergy status to other drugs, medicaments and biological substances; Z09 Encounter for follow-up examination after completed treatment for conditions other than malignant neoplasm
CPT/HCPCS: 36415; 71045-TC; 73502; 73552; 73700-TC; 80048-TC; 80076-TC; 81001; 82962-TC; 83735-TC; 84100-TC; 85025-TC; 85027-TC; 85730-TC; 86850-TC; 87081-TC; 87086-TC; 93307-TC; 93970-TC; 97110-TC; 97112-TC; 97530-TC; A4217; A6253; A6403; C1713; C1776; C9803; G0378; J0690; J1100; J1170; J1650; J1815; J1885; J2270; J2405; J2704; J3490; J7030; J7040; J7060